=== PATIENT | female | born 1950 | race Caucasian/White ===

== ENCOUNTER 2021-12-14 09:31 | Outpatient (CLI) | payer MEDICARE, SELFPAY ==
--- NOTE | 2021-12-14 11:30 | NEURO_ITS ---
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 # Normal needle/EMG exam. # Clinical correlation recommended. Nerve Conduction Studies Anti Sensory Summary Table Stim Site NR Peak (ms) P-T Amp (?V) Site1 Site2 Delta-P (ms) Dist (cm) Ramos (m/s) Left Sup Fibular Anti Sensory (Ant Lat Mall) 14 cm 4.5 4.1 14 cm Ant Lat Mall 4.5 16.0 36 Right Sup Fibular Anti Sensory (Ant Lat Mall) 14 cm 4.2 13.0 14 cm Ant Lat Mall 4.2 16.0 38 Left Sural Anti Sensory (Lat Mall) Calf 4.3 7.8 Calf Lat Mall 4.3 16.0 37 Right Sural Anti Sensory (Lat Mall) Calf 4.1 16.0 Calf Lat Mall 4.1 16.0 39 Motor Summary Table Stim Site NR Onset (ms) O-P Amp (mV) Site1 Site2 Delta-0 (ms) Dist (cm) Ramos (m/s) Left Peroneal Motor (Vastus Med) Ankle 4.2 0.4 Popit Ankle 11.6 45.0 39 Popit 15.8 0.3 B Fib Ankle 8.9 35.0 39 B Fib 13.1 0.3 Right Peroneal Motor (Vastus Med) Ankle 4.2 0.4 Popit Ankle 16.5 43.0 26 Popit 20.7 0.2 B Fib Ankle 8.7 33.0 38 B Fib 12.9 0.6 Left Tibial Motor (Abd Ferrara Brev) Ankle 4.5 1.2 Knee Ankle 11.9 37.0 31 Knee 16.4 0.1 Right Tibial Motor (Abd Ferrara Brev) Ankle 4.2 0.3 Knee Ankle 10.6 37.0 35 Knee 14.8 0.1 F Wave Studies NR F-Lat (ms) L-R F-Lat (ms) Left Peroneal (Mrkrs) (EDB) 59.30 0.70 Right Peroneal (Mrkrs) (EDB) 58.60 0.70 Left Tibial (Mrkrs) (Abd Hallucis) 59.42 0.00 Right Tibial (Mrkrs) (Abd Hallucis) 59.42 0.00 EMG Side Muscle Nerve Root Ins Act Fibs Amp Dur Recrt Comment Right AntTibialis Dp Br Fibular L4-5 Nml Nml Nml Nml Nml Right Gastroc Tibial S1-2 Nml Nml Nml Nml Nml Right Fibularis Long Sup Br Fibular L5-S1 Nml Nml Nml Nml Nml Right Flex Dig Long Tibial L5-S2 Nml Nml Nml Nml Nml Right Ext Dig Brev Dp Br Fibular L5, S1 Nml Nml Nml Nml Nml Left AntTibialis Dp Br Fibular L4-5 Nml Nml Nml Nml Nml Left Gastroc Tibial S1-2 Nml Nml Nml Nml Nml Left Fibularis Long Sup Br Fibular L5-S1 Nml Nml Nml Nml Nml Left Flex Dig Long Tibial L5-S2 Nml Nml Nml Nml Nml Left Ext Dig Brev Dp Br Fibular L5, S1 Nml Nml Nml Nml Nml MTDD
== END 2021-12-14 09:32 | disposition home or self-care (01) ==
PROVIDERS: Visit Provider Student in an Organized Health Care Education/Training Program
DX: R20.0 Anesthesia of skin (principal); G57.83 Other specified mononeuropathies of bilateral lower limbs; R20.2 Paresthesia of skin
CPT/HCPCS: 95886; 95910

== ENCOUNTER 2021-12-30 11:58 | Emergency (ER) | payer MEDICARE, SELFPAY ==
[2021-12-30 12:19] VITALS: BP 131/77; PULSE 104; RESP 16; TEMP 36.7; O2SAT 100
--- NOTE | 2021-12-30 12:52 | ED.URI ---
HPI - URI/Sore Throat General Chief Complaint: Upper Respiratory Infection Stated Complaint: uri Time Seen by Provider: 12/30/21 12:52 Source: patient and RN notes reviewed Mode of arrival: ambulatory Limitations: no limitations History of Present Illness HPI Narrative: 71-year-old female presents to the [facility] with complaints of headache, chills, fever, body aches after she was caught in the rain on Monday. Symptoms started Monday night. States that she is feeling much better today. Took home COVID test yesterday which she reports is negative. Had COVID at the beginning of the month Related Data Home Medications Medication Instructions Recorded Confirmed simvastatin 20 mg tablet (Zocor) 20 mg PO DAILY 11/11/20 11/11/20 cholecalciferol (vitamin D3) 1,250 1,250 mcg PO WEEKLY 11/05/21 mcg (50,000 unit) capsule cyclobenzaprine 5 mg tablet mg 12/30/21 dulaglutide 0.75 mg/0.5 mL mg subcut 12/30/21 subcutaneous [facility] epinephrine 0.3 mg/0.3 mL 12/30/21 injection, auto-injector pantoprazole 20 mg tablet,delayed mg PO 12/30/21 release Allergies Allergy/AdvReac Type Severity Reaction Status Date / Time bee venom protein (honey bee) Allergy Severe Swelling Verified 12/30/21 12:15 Review of Systems Review of Systems: All systems reviewed & are unremarkable except as noted in HPI and below Constitutional: Constitutional: Reports as per HPI, Reports chills, Reports fatigue and Reports fever(s) Eyes: Eyes: Reports no additional eye complaints ENT: Reports system reviewed and no additional complaints, except as documented Cardiovascular: Cardiovascular: Reports no additional cardiovascular complaints Respiratory: Respiratory: Reports no additional respiratory complaints Gastrointestinal: Gastrointestinal: Reports no additional gastrointestinal complaints Musculoskeletal: Musculoskeletal: Reports no additional musculoskeletal complaints Integumentary/Breasts: Skin/Breast: Reports system reviewed and no additional complaints, except as docu Neurologic: Reports system reviewed and no additional complaints, except as documented Psychiatric: Psychiatric: Reports no additional psychiatric complaints Allergic/Immunologic: Allergic/Immunologic: Reports no additional allergic/immunologic complaints PMFSH Past Medical History Medical History Anemia Colon cancer screening Fatigue GERD (gastroesophageal reflux disease) Spinal stenosis Social History Social History Smoking status: Never smoker Alcohol intake: current Comments At the time of my signature, I reviewed and agree with the nursing past medical, surgical, social, and family history. There is no relevant family history pertinent to the patient complaint. Exam Const: General: healthy appearing, no acute distress, alert and well nourished Nutritional Appearance: well nourished Orientation/consciousness: patient oriented x3 Limitations: no limitations HENMT: Head: normal to inspection Ears: external ears normal, TM's normal bilaterally and EAC's normal Face/Nose/Sinus: Normal external nose present and Normal nares present Face and sinus: normal facial exam and sinuses nontender Throat: posterior oropharynx normal and uvula midline Eyes: General: appearance normal, both eyes and all related structures Conjunctivae: conjunctivae normal Pupils: Equal, round and reactive pupils present Neck: Neck: normal visual inspection, no lymphadenopathy and no meningeal signs Chest: Chest palpation & inspection: normal inspection of the chest Resp: Effort & Inspection: normal respiratory effort and no use of accessory muscles Auscultation: clear to auscultation bilaterally, no crackles, no rales, no rhonchi and no wheezes Cardio: Rate: regular rate Rhythm: regular rhythm Skin: General skin exam: normal color R
== END 2021-12-30 13:07 | disposition home or self-care (01) ==
PROVIDERS: Emergency Provider Nurse Practitioner
DX: J06.9 Acute upper respiratory infection, unspecified (principal); K21.9 Gastro-esophageal reflux disease without esophagitis; M48.00 Spinal stenosis, site unspecified
CPT/HCPCS: 87804; 99213; G0463

== ENCOUNTER 2022-04-19 12:31 | Outpatient (CLI) | payer MEDICARE, SELFPAY ==
--- NOTE | ~2022-04-19 | US_ITS ---
EXAMINATION: US pelvic complete w TV DATE: 04/19/2022 13:21 INDICATION: Pelvic pain Comparison:No prior studies for comparison. TECHNIQUE: Multiple transabdominal and endovaginal sonographic images of the pelvis performed. FINDINGS: The uterus measures 5.3 x 4 x 2.5 cm. The endometrial complex is not well defined for measu rement.. The ovaries are not visualized. There is trace free fluid in the pelvis. There are no abnormal masses seen on either side. IMPRESSION: 1. Unremarkable pelvic ultrasound. Endometrium is not well delineated for measurement. Reviewed, dictated and finalized at location A. NEL ROUGHER IMPRESSION: 1. Unremarkable pelvic ultrasound. Endometrium is not well delineated for measu rement.
== END 2022-04-19 12:32 | disposition home or self-care (01) ==
PROVIDERS: Visit Provider Nurse Practitioner
DX: R10.2 Pelvic and perineal pain (principal)
CPT/HCPCS: 76830; 76856

== ENCOUNTER 2022-05-20 13:52 | Outpatient (CLI) | payer MEDICARE, SELFPAY ==
--- NOTE | ~2022-05-20 | DEXA_ITS ---
Bone Density Report Name: TORI AGUAYO Age: 71 Sex: Female Ethnicity: White Date of : 1950 Indication: postmenopausal; screening for osteoporosis; height loss; Referring Provider: [place], BLAKE Study: Bone densitometry was performed. Exam Date: May 20, 2022 Accession number: [id number] Bone Density: Region BMD T-score Z-score Classification AP Spine(L1-L4) 0.897 -1.4 0.9 Osteopenia Femoral Neck (Right) 0.761 -0.8 1.1 Normal Total Hip (Right) 0.900 -0.3 1.3 Normal World Health Organization criteria for BMD impression classify patients as: Normal (T-score at or above -1.0), Osteopenia (T-score between -1.0 and -2.5), or Osteoporosis (T-score at or below -2.5). 10-year Fracture Risk(1): Major Osteoporotic Fracture 8.6% Hip Fracture 1.0% Reported Risk Factors: [place] (), Neck BMD=0.761, BMI=23.6 (1) FRAX(R) Version 3.08. Fracture probability calculated for an untreated patient. Fracture probability may be lower if the patient has received treatment. Previous Exams: Region Exam Age BMD T-score BMD Change BMD Change Date g/cm2 vs Baseline vs Previous AP Spine (L1-L4) 05/20/2022 71 0.897 -1.4 -0.047 (-4.9%) -0.043 (-4.5%) 12/28/2018 68 0.940 -1.0 -0.004 (-0.4%) -0.012 (-1.2%) 01/18/2016 65 0.952 -0.9 0.008 (0.8%)# 0.008 (0.8%)# 09/24/2012 61 0.944 -0.9 Total Hip(Right) 05/20/2022 71 0.900 -0.3 -0.058 (-6.0%) -0.027 (-2.9%) 12/28/2018 68 0.927 -0.1 -0.031 (-3.2%) -0.008 (-0.8%) 01/18/2016 65 0.935 -0.1 -0.023 (-2.4%) -0.023 (-2.4%) 09/24/2012 61 0.958 0.1 *Denotes significance at 95% confidence level, LSC for AP Spine = 0.022 g/cm2, LSC for Total Hip = 0.027 g/cm2 # Denotes dissimilar scan types or analysis methods Clinical Information Provided by Patient: Has used the following medications: Vitamin D Patient maximum height was 66.5 Menopause Age: 37 Drinks caffeinated beverages Onset of menses at age 13 Number of children 0 Impression: The patient has low bone mass, based on the Total Spine T-score. The patient has an estimated ten-year risk of hip fracture of 1% and an estimated ten-year risk of major fracture of 8.6%, based on the WHO FRAX algorithm. The BMD for the AP Spine (L1-L4) decreased, changing by -4.5% since the last DXA exam. Discussion: BONE DENSITY IS LOW AT ONE OR MORE SKELETAL SITES. This patient's lowest T-score is low at one or more skeletal sites. It meets the World Health Organization's (WHO) criteria f
== END 2022-05-20 13:53 | disposition home or self-care (01) ==
PROVIDERS: Visit Provider Nurse Practitioner
DX: Z78.0 Asymptomatic menopausal state (principal); M85.88 Other specified disorders of bone density and structure, other site
CPT/HCPCS: 77080

== ENCOUNTER 2023-01-12 13:50 | Outpatient (CLI) | payer MEDICARE, SELFPAY ==
[2023-01-12 14:11] LABS: Basophils Percent Auto 0.3 % (0.2-1.2); Eosinophils Absolute Auto 0.3 K/mm3 (0-0.3); Eosinophils Percent Auto 2.9 % (0-4.4); Hematocrit 40.1 % (37.0-47.0); Hemoglobin 12.7 g/dL (12.0-15.0); Immature Granulocyte Absolute 0.05 K/mm3 (0.00-0.031); Immature Granulocyte Percent A 0.6 % (0-0.5); Lymphocytes Absolute Auto 2.37 K/mm3 (0.9-3.2); Lymphocytes Percent Auto 26.8 % (18.3-44.2); Mean Corpuscular HGB Conc 31.7 g/dl (32-36); Mean Corpuscular Hemoglobin 27.1 pg (26-34); Mean Corpuscular Volume 85.7 fl (80-100); Mean Platelet Volume 10.1 fl (7.4-10.4); Monocytes Absolute Auto 0.6 K/mm3 (0.1-0.6); Monocytes Percent Auto 6.7 % (2.6-8.5); Neutrophils Absolute Auto 5.5 K/mm3 (1.3-6.7); Neutrophils Percent Auto 62.7 % (45.5-73.1); Platelet Count Result 329 k/mm3 (150-375); Red Blood Count 4.68 M/mm3 (4.2-5.4); Red Cell Distribution Width 15.9 % (11.5-14.5); White Blood Count 8.8 K/mm3 (4.5-10.0)
[2023-01-12 16:35] LABS: Alanine Aminotransferase 21 U/L (6-35); Albumin Level 4.5 g/dL (3.5-5.1); Alkaline Phosphatase 76 U/L (38-126); Anion Gap 11 mmol/L (8-16); Aspartate Amino Transferase 21 U/L (14-36); Bilirubin,Total 0.6 mg/dL (0.2-1.3); Blood Urea Nitrogen 24 mg/dL (7-17); Carbon Dioxide 28 mmol/L (22-30); Chloride 101 mmol/L (98-107); Estimated Glomerular Filt Rate > 60; Glucose 90 mg/dL (65-110); Potassium 3.9 mmol/L (3.4-5.0); Sodium 140 mmol/L (137-145)
[2023-01-12 16:47] LABS: Immunoglobulin A 66 mg/dL (70-400); Immunoglobulin G 616 mg/dL (700-1600); Immunoglobulin M 54 mg/dL (40-230)
[2023-01-15 14:57] LABS: Kappa\\Lambda Light Chains 2.12 (0.26-1.65); Lambda Light Chain 9.2 mg/L (5.7-26.3)
[2023-01-15 16:09] LABS: Albumin 4.2 g/dL (3.8-4.8); Alpha 1 Globulin 0.4 g/dL (0.2-0.3); Alpha 2 Globulin 0.9 g/dL (0.5-0.9); Beta 1 Globulin 0.5 g/dL (0.4-0.6); Gamma Globulin 0.6 g/dL (0.8-1.7); Protein, Total 6.8 g/dL (6.1-8.1)
== END 2023-01-12 13:51 | disposition home or self-care (01) ==
PROVIDERS: Visit Provider Internal Medicine Hematology & Oncology
DX: D80.9 Immunodeficiency with predominantly antibody defects, unspecified (principal)
CPT/HCPCS: 36415; 80053; 82784; 83883; 84155; 84165; 85025

== ENCOUNTER 2023-10-24 07:04 | Outpatient (CLI) | payer MEDICARE, SELFPAY ==
--- NOTE | ~2023-10-24 | CT_ITS ---
CT brain w con Ordering provider: Yaniv Mojica MD History: . G43.909 - Migraine, unspecified, not intractable, without... . Comparison: None. Technique: CT of the head with and without contrast. Radiation reduction technique utilized. The dose-length product was 605.33 mGy-cm. 100 mL Omnipaque 350 was given IV. FINDINGS: BRAIN PARENCHYMA AND CSF SPACES: No midline shift, mass effect or hemorrhage. Postcontrast images de monstrate no abnormal enhancement. The brain parenchyma and CSF spaces are otherwise normal. VISUALIZED PARANASAL SINUSES: Normal. MASTOIDS: Normal. BONES: The bones appear intact. SOFT TISSUES: Visualized nasopharynx is unremarkable. Superficial soft tissues are normal. IMPRESSION: No acute intracranial findings. No enhancing lesions. Reviewed, dictated and finalized at location A.
[2023-10-24 07:27] LABS: Estimated Glomerular Filt Rate 54
== END 2023-10-24 07:05 | disposition home or self-care (01) ==
PROVIDERS: Visit Provider Psychiatry & Neurology Neurology
DX: G43.909 Migraine, unspecified, not intractable, without status migrainosus (principal)
CPT/HCPCS: 70460; Q9967

== ENCOUNTER 2024-01-29 10:57 | Outpatient (CLI) | payer MEDICARE, SELFPAY ==
[2024-01-29 11:17] LABS: Basophils Percent Auto 0.6 % (0.2-1.2); Eosinophils Absolute Auto 0.3 K/mm3 (0-0.3); Eosinophils Percent Auto 3.8 % (0-4.4); Hematocrit 39.8 % (37.0-47.0); Hemoglobin 12.8 g/dL (12.0-15.0); Immature Granulocyte Absolute 0.01 K/mm3 (0.00-0.031); Immature Granulocyte Percent A 0.2 % (0-0.5); Lymphocytes Absolute Auto 1.46 K/mm3 (0.9-3.2); Lymphocytes Percent Auto 22.4 % (18.3-44.2); Mean Corpuscular HGB Conc 32.2 g/dl (32-36); Mean Corpuscular Hemoglobin 29.1 pg (26-34); Mean Corpuscular Volume 90.5 fl (80-100); Monocytes Absolute Auto 0.4 K/mm3 (0.1-0.6); Monocytes Percent Auto 5.8 % (2.6-8.5); Neutrophils Absolute Auto 4.4 K/mm3 (1.3-6.7); Neutrophils Percent Auto 67.2 % (45.5-73.1); Platelet Count Result 266 k/mm3 (150-375); Red Cell Distribution Width 13.4 % (11.5-14.5); White Blood Count 6.5 K/mm3 (4.5-10.0)
[2024-01-29 12:19] LABS: Alanine Aminotransferase 13 U/L (6-35); Albumin Level 4.5 g/dL (3.5-5.1); Alkaline Phosphatase 76 U/L (38-126); Anion Gap 6 mmol/L (4-12); Aspartate Amino Transferase 23 U/L (14-36); Bilirubin,Total 0.6 mg/dL (0.2-1.3); Blood Urea Nitrogen 21 mg/dL (7-17); Calcium 9.1 mg/dL (8.4-10.2); Carbon Dioxide 30 mmol/L (22-30); Chloride 104 mmol/L (98-107); Estimated Glomerular Filt Rate > 60; Glucose 75 mg/dL (65-110); Potassium 4.3 mmol/L (3.4-5.0); Sodium 140 mmol/L (137-145)
[2024-01-29 12:28] LABS: Immunoglobulin A 66 mg/dL (70-400); Immunoglobulin G 556 mg/dL (700-1600); Immunoglobulin M 51 mg/dL (40-230)
[2024-01-31 03:33] LABS: Protein, Total 6.4 g/dL (6.1-8.1)
[2024-02-02 13:43] LABS: Kappa\\Lambda Light Chains 1.51 (0.26-1.65); Lambda Light Chain 11.4 mg/L (5.7-26.3)
== END 2024-01-29 10:58 | disposition home or self-care (01) ==
PROVIDERS: Visit Provider Internal Medicine Hematology & Oncology
DX: D80.9 Immunodeficiency with predominantly antibody defects, unspecified (principal)
CPT/HCPCS: 36415; 80053; 82784; 83883; 84155; 84165; 85025

== ENCOUNTER 2024-07-31 10:50 | Outpatient (CLI) | payer MEDICARE, SELFPAY ==
--- OUTSIDE RECORDS SUMMARY | 2024-07-31 10:58 | XMS_ITS | Encounter Summary ---
Author Organization [facility] Address [address] [place] [address] Care Team Providers Care Grocery Carrier Name Role Phone Unavailable Primary Care Provider Unavailabl e Encounter Details Date Type Department Care Team (Late st Contact Info) Description 05/13/2024 Lab Requisition [facility] - DermPath Lab [address] [place] [address] Ashly Sage MD [address] [facility] [address] DEPT [place] [address] Social History Tobacco Use Types Packs/Day Years Used Date Smoking Tobacco: Never Assessed Comments Unknown Sex and Gender Information Value Date Recorded Sex Assigned at Not on file Legal Sex Female 10:26 AM CDT Gender Identity Not on file Sexual Orientation Not on file documented as of this encounter Plan of Treatment Not on file documented as of this encounter Procedures Procedure Name Priority Date/Time Associated Diagnosis Comments DERMATOPATHOLOGY Routine 05/13/2024 11:1 6 AM CDT documented in this encounter Results * DERMATOPATHOLOGY (05/13/2024 11:16 AM CDT) Case Report Dermatopathology Report Case: [id number] Authorizing Provider: Ashly Sage MD Collected: 05/13/2024 11:16 AM Ordering Location: [facility] - Received: 05/15/2024 09:01 AM DermPath Lab Pathologist: Mansi Love MD Specimen: Skin, right medial inf buttock 1:25 PM CDT DERMATOPATHOLOGY LABORATORY Final Diagnosis Specimen A. 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 The specimen consists of a shave biopsy measuring 12x9x3 mm. Jar 0. 1:25 PM CDT DERMATOPATHOLOGY LABORATORY Microscopic Description Specimen A. SKIN, right medial inf buttock: There is parakeratosis overlying disorderly maturation of keratinocytes with nuclear pleomorphism throughout the full thickness of the epidermis. In addition, there is hypergranulosis with vacuolated granular layer cells. P16 reveals block-like positivity in lesional cells. P53 is overexpressed in lesional cells. COMMENT: In this location, this may represent bowenoid papulosis. The p16 block-like positivity suggests an association with high-risk human papillomavirus. Clinical correlation is recommended. 1:25 PM CDT DERMATOPATHOLOGY LABORATORY Disclaimer An external and internal positive and negative controls are appropriate for the histochemical, immunohistochemical and immunofluorescence stain(s) in this case (if any), except where stated explicitly. The performance characteristics of the stain(s) cited in this report were developed and its performance characteristic determined by the Dermatopathology Laboratory at [facility], directed by Dr. Carmella Lauren. These tests need not be, and therefore are not, approved by the [place] Food and Drug Administration. The tests are used for clinical purposes. Billing Codes Specimen Charges Stain Charges 79435 1 [id number] 40564 1 1 5 1:25 PM CDT DERMATOPATHOLOGY LABORATORY Embedded Images 1:25 PM CDT DERMATOPATHOLOGY LABORATORY Pathology/Cytolo gy TISSUE SPECIMEN FROM SKIN / Unknown 05/13/2024 11:16 AM CDT 05/15/2024 9:01 AM CDT us Ashly Sage MD LAB - PATHOLOGY/CYTOLOGY OR DERABLES Final Result DERMATOPATHOLOGY LABORATORY [facility] - Department of Dermatology [address], [address] [phone] documented in this encounter Visit Diagnoses Not on filedocumented in this encounter
--- OUTSIDE RECORDS SUMMARY | 2024-07-31 10:58 | XMS_ITS | CONTINUITY OF CARE DOCUMENT ---
Author Name [email or web address] Address Unknown Organization [facility] Address [address] [place] [address] Phone [phone] Care Team Providers Care Door Tender Name Role Phone Jeremi HAMMER, Tulio aSntos Unavailable [phone] KRAIG SMART DO Unavailable [phone] KRAIG SMART DO Unavailable [phone] [employer] Payer name Policy type / Coverage type Kenvir red green party ID [facility] MEDICARE ADVANTAGE (PPO) Other [id number]
--- OUTSIDE RECORDS SUMMARY | 2024-07-31 10:58 | XMS_ITS | Clinical Summary ---
Author Organization [facility] Address [address] [place] [address] Care Team Providers Care Warranty Administrator Name Role Phone Unavailable Primary Care Provider Unavailabl e Source Comments [facility],non-owned Affiliates and Associated Physician Practices is amultiple site organization consisting of ambulatory clinics and hospital sitesin [place], [place], [place] and [place]. This disclosure is being madepursuant to the Care Everywhere program and may not contain all information available regarding this patient. Last updated 17.[facility] Encounters Date Type Department Care Team Description 05/13/2024 Lab Requisition [facility] - DermPath Lab [address] [place] [id number] Ashly Sage MD from Last 3 Months Social History Tobacco Use Types Packs/Day Years Used Date Smoking Tobacco: Never Assessed Comments Unknown Sex and Gender Information Value Date Recorded Sex Assigned at Not on file Legal Sex Female 10:26 AM CDT Gender Identity Not on file Sexual Orientation Not on file Plan of Treatment Health Maintenance Due Date Last Done Comments BONE DENSITY TESTING 1950 COLOGUARD (AGES 45-75) - COL ON CA SCREENING 1950 COLON MONITORING 1950 COLONOSCOPY - COLON CA SCREENING 1950 CT COLONOGRAPHY - COLON CA SCREENING 1950 Colorectal Cancer Screening 1950 FIT - COLON CA SCREENING 1950 FLEX SIG - COLON CA SCREENING 1950 LIPID TESTING 1950 MAMMOGRAM 1950 HEPATITIS C SCREENING 11/09/1967 DTAP/TDAP/TD VACCINES (1 - Tdap) 1968 PNEUMOCOCCAL VACCINE 50+ (1 of 1 - PCV) 11/14/1999 ZOSTER VACCINE (1 of 2) 11/14/1999 COVID-19 VACCINE (1 - 2023-2 5 season) 2023 DEPRESSION SCREENING 03/06/2024 MEDICARE AWV CALENDAR YEAR 2024 INFLUENZA VACCINE (Season Ended) 2024 Respiratory Syncytial Virus (RSV) Vaccine Pt: or over 60 yrs (1 - 1-dose 75+ series) 2024 HEPATITIS B VACCINE Aged Out No longe r eligible based on patient's age to complete this topic HIB VACCINE Aged Out No longer eligi ble based on patient's age to complete this topic HPV VACCINE Aged Out No longer eligi ble based on patient's age to complete this topic MENINGOCOCCAL (Group B) VACC INE SHARED DECISION-MAKING Aged Out No longer eligibl e based on patient's age to complete this topic MENINGOCOCCAL GROUPS A/C/Y/W VACCINE Aged Out No longer eligible b ased on patient's age to complete this topic Procedures Procedure Name Priority Date/Time Associated Diagnosis Comments DERMATOPATHOLOGY Routine 05/13/2024 11:1 6 AM CDT from Last 3 Months Results * DERMATOPATHOLOGY (05/13/2024 11:16 AM CDT) Case Report Dermatopathology Report Case: [id number] Authorizing Provider: Ashly Sage MD Collected: 05/13/2024 11:16 AM Ordering Location: [facility] - Received: 05/15/2024 09:01 AM DermPath Lab [...] high-risk human papillomavirus. Clinical correlation is recommended. 5 1:25 PM CDT DERMATOPATHOLOGY LABORATORY Disclaimer An external and internal positive and negative controls are appropriate for the histochemical, immunohistochemical and immunofluorescence stain(s) in this case (if any), except where stated explicitly. The performance characteristics of the stain(s) cited in this report were developed and its performance characteristic determined by the Dermatopathology Laboratory at [facility], directed by Dr. Carmella Lauren. These tests need not be, and therefore are not, approved by the [place] Food and Drug Administration. The tests are used for clinical purposes. Billing Codes Specimen Charges Stain Charges 51955 1 [id number] 1 1 5 1:25 PM CDT DERMATOPATHOLOGY LABORATORY Embedded Images 5 1:25 PM CDT DERMATOPATHOLOGY LABORATORY Pathology/Cytolo gy TISSUE SPECIMEN FROM SKIN / Unknown 05/13/2024 11:16 AM CDT 05/15/2024 9:01 AM CDT Ashly Sage MD LAB - PATHOLOGY/CYTOLOGY OR DERABLES Final Result DERMATOPATHOLOGY LABORATORY [facility] - Department of Dermatology [facility] [address] [place] [address], [address] [place] [address], [facility] [phone] from Last 3 Months Insurance MEDICARE [employer] UHC MANAGED MEDICARE ADV
--- OUTSIDE RECORDS SUMMARY | 2024-07-31 10:58 | XMS_ITS | Clinical Summary ---
Author Organization [facility] Address [address] [place] [address] Phone Care Team Providers Care Generator Rebuilder Name Role Phone Rob Ferreira Primary Care Provider Allergies No known active allergies Medications valACYclovir (VALTREX) 500 mg tabletIndications: Primary HSV infection of mouth Take 500 mg by mouth every 12 hours as needed. 03/29/19 16 Active ergocalciferol (VITAMIN D2) 50,000 unit capsule TK 1 C PO Q MONTH WITH A MEAL 11/04/19 20 Active EPINEPHrine (EPIPEN) 0.3 mg/0.3 mL Auto-InjectorIndic ations:Bee sting allergy Inject 0.3 mL (0.3 mg) by intramuscular injection 1 time daily as needed for Anaphylaxis. 1 Each 02/17/20 21 Active fluticasone propionate (FLONASE) 50 mcg/spray [place], Suspension nasal inhalerIndications :Seasonal allergic rhinitis due to pollen Administer 2 Sprays in each nostril daily. 16 Gram 02/17/20 21 Active latanoprost (XALATAN) 0.005 % solution INSTILL 1 DROP INTO EACH EYE AT BEDTIME 09/01/19 23 Active dulaglutide (TRULICITY) 4.5 mg/0.5 mL injectionIndicatio ns:Metabolic syndrome,BMI 28.0-28.9,adult,Pr ediabetes Inject 0.5 mL (4.5 mg) by subcutaneous injection every 7 days. Dx codes: E88.81, Z68.28, and R73.03 6 mL 3 09/18/19 24 Active brimonidine (ALPHAGAN) 0.2 % solution instill 1 drop into each eye twice daily 10/10/19 24 Active traZODone (DESYREL) 50 mg tabletIndications: Primary insomnia Take 1 Tablet (50 mg) by mouth daily at bedtime. 90 Tablet 1 11/23/19 24 Active lansoprazole (PREVACID) 30 mg Capsule, Delayed Release(E.C.) TAKE 1 CAPSULE BY MOUTH ONCE DAILY 30 MINUTES BEFORE DINNER 100 Capsule 3 05/02/19 25 Active simvastatin (ZOCOR) 20 mg tabletIndications: Mixed hyperlipidemia TAKE 1 TABLET BY MOUTH ONCE DAILY LATE IN THE DAY 100 Tablet 3 06/18/19 25 Active Active Problems Patient Care Coordination No te Formatting of this note migh t be different from the original. Primary Care: Rob Ferreira [place]: [place] [address] [facility] [address] [place] [address] Other: Odalys Cruz CERAMIC ARTIST Problem Noted Date Diagnosed Date Bee sting allergy 02/16/2021 History of left hip replacement 02/16/2021 Degenerative tear of left medial meniscus 2020 Spinal stenosis of lumbar region 02/14/2019 Prediabetes 08/18/2016 Major depressive disorder wi th single episode, in full remission 08/18/2016 Need for vaccination with 13 -polyvalent pneumococcal conjugate vaccine 12/23/2015 Dermatitis 06/23/2015 Screening mammogram for high-risk patient 2015 Hyperlipidemia 04/02/2015 Metabolic syndrome 04/02/2015 Hiatal hernia Acid reflux Resolved Problems Problem Noted Date Diagnosed Date Resolved Date BMI 26.0-26.9,adult 11/18/2021 11/19/19 23 Prehypertension 12/23/2015 11/18/2022 BMI 28.0-28.9,adult 06/23/2015 11/19/19 23 Situational mixed anxiety an d depressive disorder 04/02/2015 10/17/2019 Migraine without aura and wi thout status migrainosus, not intractable 04/02/2015 11/18/2022 GERD (gastroesophageal reflux disease) 04/02/2015 02/14/2019 Irritable bowel syndrome without diarrhea 04/02/2015 11/18/2022 04/02/201511/18/2022 Breast pain 10/27/2011 12/27/2012 Osteopenia 04/02/2015 Encounters Date Type Department Care Team Description 07/25/2024 External Device Data ST[facility] ABSTRACTION Provider, Abstract 07/24/2024 External Device Data [facility] ABSTRACTION Provider, Abstract 07/23/2024 External Device Data [facility] ABSTRACTION Provider, Abstract 07/12/2024 Orders Only [facility] [address] [place] [address] Provider, Abstract 07/05/2024 Abstract [facility] Oncology and Hematology - [address] [place] [phone] Danielito Church MD 06/16/2024 Refill [facility] Internal Medicine - [address] [place] [address] Rob Ferreira, Mixed hyperlipidemia 06/03/2024 Abstract [facility] Internal Medicine - [place] [address] [place] [address] Rob Ferreira DO 05/30/2024 Medication Prior Auth Encounter [facility] Prescription Management Dept [address] [place] [address] [place] [phone] Kim Walsh, PHARMACIST 05/30/2024 Refill [facility] Internal Medicine [facility] [address] [place] [address] Rob Ferreira DO 05/22/2024 External Device Data [facility] ABSTRACTION Provider, Abstract 05/11/2024 External Device Data [facility] ABSTRACTION Provider, Abstract 05/10/2024 External Device Data [facility] ABSTRACTION Provider, Abstract 05/08/2024 External Device Data [facility] ABSTRACTION Provider, Abstract from Last 3 Months Immunizations Immunization Administration Dates Next Due (DIPHTHERIA AND TETANUS TOXO IDS ADSORBED)(6 WKS-6 YRS) DIPTHERHIS AND TETANUS TOXOIDS VACCINE, 0.5 ML IM 11/19/2014 (INFANRIX)(6 WKS-6 YRS) DIPT HERIA, TETANUS TOXOIDS, AND ACCELLULAR PERTUSSIS VACCINE (DTAP), 0.5 ML IM 11/11/2014 (PNEUMOVAX 23)(50 YRS UP) PN EUMOCOCCAL POLYSACCHARIDE (PPV23) 0.5 ML, IM 04/26/2017 (PREVNAR 13)(6 WKS UP) PNEUM OCOCCAL CONJUGATE (PCV13) 0.5 ML, IM 12/23/2015,11/19/2014 (SHINGRIX)(50 YRS UP) ZOSTER VACCINE RECOMBINANT, 0.5 ML, IM 08/23/2019,02/21/2019 (SPIKEVAX) (12 YRS UP PRIMAR Y SERIES) COVID-19 VACCINE - MRNA-1273(PF) 100 MCG/0.5 ML IM SUSP 08/10/2021,01/20/2021,05/25/2020,04/23 Hepatitis A Vaccine 10/07/2008,04/04/2008 Hepatitis B Vaccine 10/07/2008,05/05/2008,2008 INFLUENZA VACCINE QUADRIVALE NT 3 YR UP PF IM 12/12/2017 INFLUENZA VACCINE QUADRIVALE NT ADJ 65 YR UP PF IM 12/05/2019 Influenza Seasonal Unspecifi ed Formulation IM 12/05/2019,12/07/2016,11/11/2014 Influenza Vaccine High Dose 65+ Yrs IM 0 11/15/2018,12/23/2015,12/10/2013,12/11,12/14/2011,12/01/2010 PNEUMOVAX (PPSV23) pneumococ digna polysaccharide 23-valent Vaccine 11/11/2014 Pneumococcal conjugate, unsp ecified formulation 11/11/2014 Zoster Vaccine Live SQ 12/18/2014 Family History Medical History Relation Name Comments Cancer Maternal Aunt 1 stomach Lung Cancer Maternal Aunt 2 Cancer Maternal Grandmother Hailey Mayberry unsur e Cancer - Other Maternal Grandmother Hailey Mayberry Walter ated with radium for some kind of issues with female organs Cancer - Other Mother Mae Padilla Skin cancer Depression Mother Mae Padilla Other Mother Mae Padilla Cancer Paternal Aunt unsure Other Paternal Uncle diabetes Hypertension Sister Relation Name Status Comments Father Maternal Aunt 1 Maternal Aunt 2 Maternal Grandmother Hailey Mayberry Mother Mae Padilla Alive Paternal Aunt Paternal Uncle Sister Alive Social History Tobacco Use Types Packs/Day Years Used Date Smoking Tobacco: Never Passive Smoke Exposure: Never Smokeless Tobacco: Never Tobacco Cessation:Counseling Given: Not Answered Alcohol Use Standard Drinks/Week Comments Yes 0 (1 standard drink = 0.6 oz pur e alcohol) moderate Feeling Safe Answer Date Recorded Fear of Current or Ex-Partner Not on file Emotionally Abused Not on file 12/01/2023 Within the last year, have y ou been kicked, hit, slapped, or otherwise physically hurt by your partner or ex-partner? No 12/01/2023 Sexually Abused Not on file 12/01/2023 Financial Resource Strain Answer Date R ecorded How hard is it for you to pa y for the very basics like food, housing, medical care, and heating? Not hard at all 11/18/2021 Food Insecurity Answer Date Recorded In the past 12 months, have you worried that your food would run out before you had money to buy more? Never true 11/18/2021 In the past 12 months, did y ou run out of food and didn't have money to buy more? Never true 11/18/2021 Transportation Needs Answer Date Record ed In the past 12 months, has l ack of transportation kept you from medical appointments or from getting medications? No 11/18/2021 Lack of Transportation (Non-Medical) Not on file 11/18/2021 Comments No Sex and Gender Information Value Date Recorded Sex Assigned at Female 11/24/2023 5:07 AM CDT Legal Sex Female 5:42 AM PLANT OPERATOR/SHIFT SUPERVISOR Gender Identity Female 11/24/2023 5:07 AM CDT Sexual Orientation Not on file Occupation Industry Job Start Date Job End Date Not on file Not on file Not on file Not on file Last Filed Vital Signs Vital Sign Reading Time Taken Comments Blood Pressure 127/79 02/07/2024 11:02 AM PLANT OPERATOR/SHIFT SUPERVISOR Pulse 75 02/07/2024 11:02 AM PLANT OPERATOR/SHIFT SUPERVISOR Temperature 36.3 C (97.3 F) 02/07/2024 11:02 AM PLANT OPERATOR/SHIFT SUPERVISOR Respiratory Rate 16 02/07/2024 11:02 AM PLANT OPERATOR/SHIFT SUPERVISOR Oxygen Saturation 97% 02/07/2024 11:02 AM PLANT OPERATOR/SHIFT SUPERVISOR Inhaled Oxygen Concentration - - Weight 71.7 kg (158 lb) 02/07/2024 11:02 AM PLANT OPERATOR/SHIFT SUPERVISOR Height 167.6 cm (5' 6) 12/01/2023 11:38 AM CDT Body Mass Index 25.5 12/01/2023 11:38 AM CDT Plan of Treatment Upcoming Encounters Date Type Department Care Team (Late st Contact Info) Description 08/07/2024 10:15 AM CDT Office Visit [facility] Oncology and Hematology - [place] [address] [facility] [address] [place] [phone] Danielito Church MD [address] [facility] [address] [place] [address] 11/20/2024 10:40 AM CDT Office Visit [facility] Internal Medicine - [facility] [address] [place] [address] [place] [address] [place] [address] 12/03/2024 11:30 AM CDT Appointment [facility] [address] [address] [place] [phone] Angie Rodriguez, PIGGYBACK CLERK [address] [facility] [address] [place] [phone] 12/03/2024 12:30 PM CDT Office Visit [facility] Breast Surgery [place] [address] [facility] [address] [place] [address] Angie Rodriguez, SHARON [address] [place] [address] Health Maintenance Due Date Last Done Comments FIT/ DNA Q 3 YEARS (AUTO ORDER) 11/14/1967 FIT/FOBT Q 1 YEAR (AUTO ORDER) 11/14/1967 FLEX SIG/CT COLONOGRAPHY Q 5 YEARS (AUTO ORDER) 11/14/1967 FIT-DNA Q 3 years 1994 FIT/FOBT Q 1 year 1994 Flex Sig/CT Colonography Q 5 years 1994 RSV VACCINE (60+ or ) (1 - Risk 60-74 years 1-dose series) 2009 OSTEOPOROSIS SCREENING 08/10/2022 08/10/2017, 2012 INFLUENZA VACCINE (#1) 2023 , 12/05/2019, 12/05/2019, Additional history exists COVID-19 Vaccine (5 - 2023-2 5 season) 2023 08/10/2021, 01/20/2021, 05/25/2020, Additional history exists [place] Ad[place] ([place]) Preventative Visit/Annual Wellness Visit 03/06/2024 11/23/2023, 11/18/2022, 11/18/2021, Additional history exists DTAP/TDAP/TD VACCINES (3 - Tdap) 11/19/2024 11/20/19 15, 11/11/2014 BREAST CANCER SCREENING 11/30/2024 12/01/19 24, 11/29/2022, 11/24/2021, Additional history exists COLORECTAL CANCER SCREENING (AUTO ORDER) 03/15/2028 03/15/2018, 08/29/2013 COLORECTAL SCREENING 03/15/2028 03/15/2018, 08/29/2013, 03/06/2013 Colorectal Cancer Screening (AUTO ORDER) 03/15/2028 Colorectal Cancer Screening 03/15/2028 PNEUMOCOCCAL VACCINE 50+ YEARS Completed 0 04/26/2017, 04/26/2017, 12/23/2015, Additional history exists ZOSTER VACCINE Completed 08/23/2019, 02/03, 12/18/2014 Procedures Procedure Name Priority Date/Time Associated Diagnosis Comments EYE EXAM Routine 07/03/2024 2:39 PM CDT MAMMO 3D ANNETTE SCREEN BILAT W OR WO CAD Routine 12/01/2023 11:30 AM CDT Visit for screening mammogram Encounter for screening breast examination ENDOSCOPY, COLON, SCREENING Routine 03/15/2018 HM DEXA SCAN Routine 08/10/2017 from Last 3 Months or Most Recently Relevant to Health Maintenance Results * EYE EXAM (07/03/2024 2:39 PM CDT) us Abstract Provider OPHTH OTHER Final Result [facility] CLIA# [id number] [place] [address] * MAMMO SCRN BILAT 3D ANNETTE W OR WO CAD (12/01/2023 11:30 AM CDT) Anatomical Region Laterality Modality Breast Bilateral Mammography 12/01/2023 11:3 1 AM CDT Impressions 12/01/2023 11:44 AM CDT IMPRESSION: 1. No concerning findings. OVERALL FINAL ASSESSMENT: BI-RADS CATEGORY 1 - Negative. RECOMMENDATIONS: 1. Recommend annual mammography. DICTATION LOCATION: [facility] Narrative 12/01/2023 11:44 AM CDT BILATERAL SCREENING DIGITAL MAMMOGRAM WITH 3D TOMOSYNTHESIS AND CAD DATE: 12/01/2023 11:30 AM HISTORY: Routine yearly screening exam. TECHNIQUE: Low-dose full-field digital breast tomosynthesis examination was performed of both breasts with 2D and 3D acquisitions. CAD was utilized. COMPARISON: Studies dating back to June 2018 BREAST COMPOSITION: There are scattered areas of fibroglandular density. FINDINGS: No concerning dominant masses, suspicious calcifications, parenchymal asymmetries or areas of architectural distortion are identified in either breast. Procedure Note Tree Alvarado MD - 12/01/2023 BILATERAL SCREENING DIGITAL MAMMOGRAM WITH 3D TOMOSYNTHESIS AND CAD DATE: 12/01/2023 11:30 AM HISTORY: Routine yearly screening exam. TECHNIQUE: Low-dose full-field digital breast tomosynthesis examination was performed of both breasts with 2D and 3D acquisitions. CAD was utilized. COMPARISON: Studies dating back to June 2018 BREAST COMPOSITION: There are scattered areas of fibroglandular density. FINDINGS: No concerning dominant masses, suspicious calcifications, parenchymal asymmetries or areas of architectural distortion are identified in either breast. IMPRESSION: 1. No concerning findings. OVERALL FINAL ASSESSMENT: BI-RADS CATEGORY 1 - Negative. RECOMMENDATIONS: 1. Recommend annual mammography. DICTATION LOCATION: [facility] [place] Angie Rodriguez PIGGYBACK CLERK MAMMO ORDERABLES Final Re sult * ENDOSCOPY, COLON, SCREENING (03/15/2018) us Gamal Ibarra MD GI PROCEDURE ORDERABLES Edited R esult - Final [facility] [place] CLIA# [id number] [place], [place] [id number] * HM DEXA SCAN (08/10/2017) us Abstract Provider HEALTH MAINTENANCE Edited Resu lt - Final [facility] CLIA# [id number] [place], [place] [id number] from Last 3 Months or Most Recently Relevant to Health Maintenance Insurance RX [employer] RX Member Subscriber Plan / Payer (Ef fective 2020-Present) Name:Loretta Trujillo Relation to Subscriber:Self Name:Loretta Trujillo Payer ID:Not on file Group ID:[id number] Type:RX Medicare Part D Address: [address] [facility] [address] Care Teams Generator Rebuilder Relationship Specialty [place] [address] [place] [address] PCP - General Internal Medicine 04/02/15
--- OUTSIDE RECORDS SUMMARY | 2024-07-31 10:58 | XMS_ITS | Encounter Summary ---
Author Organization [facility] Address [address] [place] [address] Care Team Providers Care Therapeutic Specialist Name Role Phone Unavailable Primary Care Provider Unavailabl e Encounter Details Date Type Department Care Team (Late st Contact Info) Description 07/10/2019 Lab Requisition [facility] DermPath Lab [address] [place] [phone] Ashly Sage MD [address] [facility] [address] [place] [address] Social History Tobacco Use Types Packs/Day Years [...] Priority Date/Time Associated Diagnosis Comments DERMATOPATHOLOGY Routine 07/09/2019 12:0 0 AM CDT documented in this encounter Results * DERMATOPATHOLOGY (07/09/2019 12:00 AM CDT) Case Report Dermatopathology Report Case: [id number] Authorizing Provider: Ashly Sage MD Collected: 07/09/2019 12:00 AM Ordering Location: [facility] DermPath Lab Received: 07/10/2019 07:01 AM Pathologist: Chris Lauren MD Specimen: Skin, left lateral ankle 0 2:28 PM CDT DERMATOPATHOLOGY LABORATORY Final Diagnosis Specimen A. SKIN, left lateral ankle: BASAL CELL CARCINOMA, NODULAR TYPE (C44.719) 0 2:28 PM CDT DERMATOPATHOLOGY LABORATORY at 1428 CDT Clinical History R/O BCC, irritated, non-healing. 0 2:28 PM CDT DERMATOPATHOLOGY LABORATORY Gross Description Specimen A: Received is one formalin filled container labeled with the patient's name and designated left lateral ankle. The specimen consists of a shave measuring [id number]. Jar 0. 0 2:28 PM CDT DERMATOPATHOLOGY LABORATORY Microscopic Description Specimen A. SKIN, left lateral ankle: Within the dermis there are aggregates of basaloid cells with a high nuclear to cytoplasmic ratio and peripheral palisading. 0 2:28 PM CDT DERMATOPATHOLOGY LABORATORY Disclaimer An external [...] purposes. Billing Codes Specimen Charges Stain Charges 91957 1 0 2:28 PM CDT DERMATOPATHOLOGY LABORATORY Embedded Images 0 2:28 PM CDT DERMATOPATHOLOGY LABORATORY Pathology/Cytolog y TISSUE SPECIMEN FROM SKIN / Unknown 07/09/2019 07/10/2019 7:01 AM CDT Ashly Sage MD LAB - PATHOLOGY/CYTOLOGY OR DERABLES Final Result DERMATOPATHOLOGY LABORATORY [facility] - Department of Dermatology [address] [place] [address], [address] [place] [address], [facility] [phone] documented in this encounter Visit Diagnoses Not on filedocumented in this encounter
[2024-07-31 11:07] LABS: Basophils Percent Auto 0.5 % (0.2-1.2); Eosinophils Absolute Auto 0.2 K/mm3 (0-0.3); Eosinophils Percent Auto 2.6 % (0-4.4); Hematocrit 40.7 % (37.0-47.0); Hemoglobin 12.8 g/dL (12.0-15.0); Immature Granulocyte Absolute 0.02 K/mm3 (0.00-0.031); Immature Granulocyte Percent A 0.3 % (0-0.5); Lymphocytes Absolute Auto 1.56 K/mm3 (0.9-3.2); Lymphocytes Percent Auto 21.1 % (18.3-44.2); Mean Corpuscular HGB Conc 31.4 g/dl (32-36); Mean Corpuscular Hemoglobin 28.7 pg (26-34); Mean Corpuscular Volume 91.3 fl (80-100); Mean Platelet Volume 9.7 fl (7.4-10.4); Monocytes Absolute Auto 0.6 K/mm3 (0.1-0.6); Monocytes Percent Auto 8.5 % (2.6-8.5); Platelet Count Result 291 k/mm3 (150-375); Red Blood Count 4.46 M/mm3 (4.2-5.4); Red Cell Distribution Width 15.1 % (11.5-14.5); White Blood Count 7.4 K/mm3 (4.5-10.0)
[2024-07-31 12:41] LABS: Immunoglobulin A 61 mg/dL (70-400); Immunoglobulin G 511 mg/dL (700-1600); Immunoglobulin M 47 mg/dL (40-230)
== END 2024-07-31 10:51 | disposition home or self-care (01) ==
LOC: ANHLAB 10:52
PROVIDERS: Visit Provider Internal Medicine Hematology & Oncology
DX: D80.9 Immunodeficiency with predominantly antibody defects, unspecified (principal)
CPT/HCPCS: 36415; 82784; 85025

== ENCOUNTER 2024-12-02 09:17 | Outpatient (CLI) | payer MEDICARE, SELFPAY ==
--- NOTE | ~2024-12-02 | DEXA_ITS ---
Bone Density Report Name: TORI AGUAYO Age: 74 Sex: Female Ethnicity: White Date of : 1950 Indication: osteopenia; parental hip fracture; height loss; prior fracture; Referring Provider: [place], BLAKE Study: Bone densitometry was performed. Exam Date: December 02, 2024 Accession number: [id number] Bone Density: Region BMD T-score Z-score Classification AP Spine(L1-L4) 0.876 -1.6 0.8 Osteopenia Femoral Neck (Right) 0.751 -0.9 1.2 Normal Total Hip (Right) 0.907 -0.3 1.5 Normal World Health Organization criteria for BMD impression classify patients as: Normal (T-score at or above -1.0), Osteopenia (T-score between -1.0 and -2.5), or Osteoporosis (T-score at or below -2.5). 10-year Fracture Risk(1): Major Osteoporotic Fracture 22% Hip Fracture 8.5% Reported Risk Factors: [place] (), Neck BMD=0.751, BMI=25.1, previous fracture, parental fracture (1) FRAX(R) Version 3.08. Fracture probability calculated for an untreated patient. Fracture probability may be lower if the patient has received treatment. Previous Exams: Region Exam Age BMD T-score BMD Change BMD Change Date g/cm2 vs Baseline vs Previous AP Spine (L1-L4) 12/02/2024 74 0.876 -1.6 -0.068 (-7.2%) -0.021 (-2.4%) 05/20/2022 71 0.897 -1.4 -0.047 (-4.9%) -0.043 (-4.5%) 12/28/2018 68 0.940 -1.0 -0.004 (-0.4%) -0.012 (-1.2%) 01/18/2016 65 0.952 -0.9 0.008 (0.8%)# 0.008 (0.8%)# 09/24/2012 61 0.944 -0.9 Total Hip(Right) 12/02/2024 74 0.907 -0.3 -0.051 (-5.3%) 0.007 (0.7%) 05/20/2022 71 0.900 -0.3 -0.058 (-6.0%) -0.027 (-2.9%) 12/28/2018 68 0.927 -0.1 -0.031 (-3.2%) -0.008 (-0.8%) 01/18/2016 65 0.935 -0.1 -0.023 (-2.4%) -0.023 (-2.4%) 09/24/2012 61 0.958 0.1 *Denotes significance at 95% confidence level, LSC for AP Spine = 0.022 g/cm2, LSC for Total Hip = 0.027 g/cm2 # Denotes dissimilar scan types or analysis methods Clinical Information Provided by Patient: Has had a low trauma fracture Parent has had a hip fracture Has used the following medications: Fosamax (i.e. alendronate), HRT (i.e. estrogen/hormone therapy), Vitamin D, Calcium Patient maximum height was 67.0 Menopause Age: 37 No regular weight bearing exercise Does not regularly consume dairy products Drinks caffeinated beverages Onset of menses at age 14 Number of children 0 Impression: The patient has low bone mass, based on the Total Spine T-score. The patient has an estimated ten-year risk of hip fracture of 8.5% and an estimated ten-year risk of major fracture of 22%, based on the WHO FRAX algorithm. The patient has risk factors, including: parental hip fracture, previous fracture. No significant bone loss was observed. Discussion: BONE DENSITY IS LOW AT ONE OR MORE SKELETAL SITES. THE PATIENT'S BMD AND CLINICAL RISK FACTORS CONTRIBUTE TO THIS PATIENT'S HIGH RISK OF FRACTURE. This patient's lowest T-score is low at one or more skeletal sites. It meets the World Health Organization's (WHO) criteria for ?low bone mass? (T-score between -1.0 and -2.5). The patient's 10-year risk of hip fracture and 10 year risk of a major osteoporotic fracture as calculated by FRAX exceeds the threshold where pharmacological therapy is recommended by the National Osteoporosis Foundation (NOF). However, all treatment decisions require clinical judgment and consideration of individual patient factors, including patient preferences, comorbidities, previous drug use, risk factors not captured in the FRAX model (e.g., frailty, falls, vitamin D deficiency, increased bone turnover, interval significant decline in bone density) and possible under or overestimation of fracture risk by FRAX. The patient should follow a healthful lifestyle (good nutrition with adequate calcium and vitamin D, and appropriate weight-bearing exercise). Follow-Up: Consider a repeat BMD and Vertebral Fracture Assessment (VFA) exam in 2 years or sooner if medically necessary, to reassess this patient's status. Reported by: KYLE on 12/02/2024 9:56:00 AM. Reviewed, dictated and finalized at location A.
--- OUTSIDE RECORDS SUMMARY | 2024-12-02 09:48 | XMS_ITS | Clinical Summary ---
Author Organization [facility] Address [address] [place] [address] Care Team Providers Care Home Care Coordinator Name Role Phone Unavailable Primary Care Provider Unavailabl e Source Comments [facility],non-owned Affiliates and Associated Physician Practices is amultiple site organization consisting of ambulatory clinics and hospital sitesin [place], [place], [place] and [place]. This disclosure is being madepursuant to the Care Everywhere program and may not contain all information available regarding this patient. Last updated 17.[facility] Social History Tobacco Use Types Packs/Day Years [...] 11/14/1999 ZOSTER VACCINE (1 of 2) 11/14/1999 DEPRESSION SCREENING 03/06/2024 MEDICARE AWV CALENDAR YEAR 2024 COVID-19 VACCINE (1 - 2023-2 5 season) 2024 INFLUENZA VACCINE (#1) 2024 Respiratory Syncytial Virus (RSV) Vaccine Pt: [...] on patient's age to complete this topic Insurance [employer] MANAGED MEDICARE ADV
--- OUTSIDE RECORDS SUMMARY | 2024-12-02 09:48 | XMS_ITS | Clinical Summary ---
Author Organization [facility] Address [address] [place] [address] Phone Care Team Providers Care Punch Finisher Name Role Phone Rob Ferreira Primary Care Provider Allergies No known active allergies Medications valACYclovir (VALTREX) 500 mg tabletIndications: Primary HSV infection of mouth Take 500 mg by mouth every 12 hours as needed. 03/29/19 16 Active EPINEPHrine (EPIPEN) 0.3 mg/0.3 mL Auto-InjectorIndic ations:Bee sting allergy Inject 0.3 mL (0.3 mg) by intramuscular injection 1 time daily as needed for Anaphylaxis. 1 Each 02/17/20 21 Active fluticasone propionate (FLONASE) 50 mcg/spray [place], Suspension nasal inhalerIndications :Seasonal allergic rhinitis due to pollen Administer 2 Sprays in each nostril daily. 16 Gram 02/17/20 21 Active latanoprost (XALATAN) 0.005 % solution INSTILL 1 DROP INTO EACH EYE AT BEDTIME 09/01/19 23 Active brimonidine (ALPHAGAN) 0.2 % solution instill [...] DAY 100 Tablet 3 06/18/19 25 Active cyclobenzaprine (FLEXERIL) 5 mg TabletIndications: Muscle spasm Take 1 Tablet (5 mg) by mouth 3 times daily as needed for Spasm. 75 Tablet 11/21/19 25 Active Active Problems Patient Care Coordination No te Formatting of this note migh t be different from the original. 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 [address] [place] [address] Rob Ferreira, Pure hypercholesterolemia (Primary Dx); Gastroesophageal reflux disease without esophagitis; Prediabetes; Major depressive disorder with single episode, in full remission; BMI 24.0-24.9, adult; Menopause; Muscle spasm; Osteopenia of multiple sites; Medicare annual wellness visit, subsequent; Common variable immunodeficiency, unspecified (CMS/HCC); Selective deficiency of IgG (CMS/HCC) 11/19/2024 External Device Data STL ABSTRACTION Provider, Abstract 11/12/2024 External Device Data STL ABSTRACTION Provider, Abstract 09/18/2024 External Device Data STL ABSTRACTION Provider, Abstract 09/18/2024 External Device Data STL ABSTRACTION Provider, Abstract [...] Never Smokeless Tobacco: Never Tobacco Cessation:Counseling Given: No Alcohol Use Standard Drinks/Week Comments Yes 0 [...] AM CDT Legal Sex Female 5:42 AM ANIMAL CARE ASSISTANT Gender Identity Female 11/24/2023 5:07 AM CDT Sexual Orientation Not on file Occupation Industry Job Start Date Job End Date Not on file Not on file Not on file Not on file Last Filed Vital Signs Vital Sign Reading Time Taken Comments Blood Pressure 112/74 11/20/2024 10:24 AM CDT Pulse 71 11/20/2024 10:24 AM CDT Temperature 36.4 C (97.6 F) 11/20/2024 10:24 AM CDT Respiratory Rate 16 11/20/2024 10:24 AM CDT Oxygen Saturation 96% 11/20/2024 10:24 AM CDT Inhaled Oxygen Concentration - - Weight 69.4 kg (153 lb) 11/20/2024 10:24 AM CDT Height 167.6 cm (5' 6) 11/20/2024 10:24 AM CDT Body Mass Index 24.69 11/20/2024 10:24 AM CDT Plan of Treatment Upcoming Encounters Date Type Department Care Team (Late st Contact Info) Description 12/03/2024 11:30 AM CDT Appointment [facility] [address] [place] [address] Angie Rodriguez, SHARON [address] [place] [address] 12/03/2024 12:30 PM CDT Office Visit [facility] [address] [place] [address] Angie Rodriguez, SHARON [address] [place] [address] 02/06/2025 11:30 AM ANIMAL CARE ASSISTANT Office Visit [facility] - [place] [address] [facility] [address] [place] [address] Danielito Church MD [address] [facility] [address] [place] [address] 11/18/2025 11:00 AM CDT Office Visit [facility] - [facility] [address] [facility] [address] [place] [address] Rob Ferreira, [address] [place] [address] Health Maintenance Due Date Last Done Comments FIT/ DNA Q 3 YEARS (AUTO ORDER) 11/14/1967 FIT/FOBT Q 1 YEAR (AUTO ORDER) 11/14/1967 FLEX SIG/CT COLONOGRAPHY Q 5 YEARS (AUTO ORDER) 11/14/1967 FIT-DNA Q 3 years 1994 FIT/FOBT Q 1 year 1994 Flex Sig/CT Colonography Q 5 years 1994 OSTEOPOROSIS SCREENING 08/10/2022 08/10/2017, 2012 INFLUENZA VACCINE (#1) 2024 , 12/05/2019, 12/05/2019, Additional history exists COVID-19 Vaccine (5 - 2024-2 6 season) 2024 08/10/2021, 01/20/2021, 05/25/2020, Additional history exists RSV VACCINE (60+ or ) (1 - 1-dose 75+ series) 2024 DTAP/TDAP/TD VACCINES (3 - Tdap) 11/19/2024 11/20/19 15, 11/11/2014 COLORECTAL CANCER SCREENING (AUTO ORDER) 03/15/2028 03/15/2018, 08/29/2013 COLORECTAL SCREENING 03/15/2028 03/15/2018, 08/29/2013, 03/06/2013 Colorectal Cancer Screening (AUTO ORDER) 03/15/2028 Colorectal Cancer Screening 03/15/2028 PNEUMOCOCCAL VACCINE 50+ YEARS Completed 0 04/26/2017, 04/26/2017, 12/23/2015, Additional history exists ZOSTER VACCINE Completed 08/23/2019, 02/03, 12/18/2014 [place] Preventative Visit/Annual Wellness Visit Completed 11/20/2024, 11/23/2023, 11/18/2022, Additional history exists Procedures Procedure Name Priority Date/Time Associated Diagnosis Comments HEMOGLOBIN A1C Routine 11/20/2024 11:11 AM CDT Prediabetes LIPID PANEL Routine 11/20/2024 11:11 AM CDT Pure hypercholesterolemia ENDOSCOPY, COLON, SCREENING Routine 03/15/2018 HM DEXA SCAN Routine 08/10/2017 from Last 3 Months or Most Recently Relevant to Health Maintenance Results * (ABNORMAL) HEMOGLOBIN A1C (11/20/2024 11:11 AM CDT) HEMOGLOBIN A1C 6.0(H) <5.7 % of total Hgb [facility] Comment: For someone without known diabetes, a hemoglobin A1c value between 5.7% and 6.4% is consistent with prediabetes and should be confirmed with a follow-up test. For someone with known diabetes, a value <7% indicates that their diabetes is well controlled. A1c targets should be individualized based on duration of diabetes, age, comorbid conditions, and other considerations. This assay result is consistent with an increased risk of diabetes. Currently, no consensus exists regarding use of hemoglobin A1c for diagnosis of diabetes for children. ESTIMATED AVERAGE GLUCOSE (MG/DL) 126 mg/dL [facility] ESTIMATED AVERAGE GLUCOSE (MMOL/L) 7.0 mmol/L [facility] Comment: FASTING:UNKNOWN FASTING: UNKNOWN Test Performed at: [facility] [address] [place] [address] Angelica Gudino Blood 11/20/2024 11:1 1 AM CDT 11/20/2024 11:11 AM CDT us Rob Ferreira DO CHEMISTRY ORDERABLES F inal Result [facility] [phone] [place] [address] [address] [address] * (ABNORMAL) LIPID PANEL (11/20/2024 11:11 AM CDT) CHOLESTEROL 202(H) <200 mg/dL [facility] HDL 89 > OR = 50 mg/dL [facility] TRIGLYCERIDE 82 <150 mg/dL [facility] IMANINAriadne rian Valdes LDL CALCULATED 96 mg/dL (calc) [facility] IMAN[facility]ne rian Valdes Comment: Reference range: <100 Desirable range <100 mg/dL for primary prevention; <70 mg/dL for patients with CHD or diabetic patients with > or = 2 CHD risk factors. LDL-C is now calculated using the Shena calculation, which is a validated novel method providing better accuracy than the Friedewald equation in the estimation of LDL-C. Quinn GODINEZ et al. DOMINIQUE. 2013;310(19): 4131-6947 (http://education.[employer]/faq/IKE632) CHOL/HDL RATIO 2.3 <5.0 (calc) [facility] AndrewAriadne rian Valdes NON-HDL CHOLESTEROL 113 <130 mg/dL (calc) [facility] Comment: For patients with diabetes plus 1 major ASCVD risk factor, treating to a non-HDL-C goal of <100 mg/dL (LDL-C of <70 mg/dL) is considered a therapeutic option. FASTING:UNKNOWN FASTING: UNKNOWN Test Performed at: [place] [address] [address] [address] Angelica Cannon Blood 11/20/2024 11:1 1 AM CDT 11/20/2024 11:11 AM CDT us Rob Ferreira DO CHEMISTRY ORDERABLES F inal Result [facility] [phone] [place] [address] [address] [place] [address] * ENDOSCOPY, COLON, SCREENING (03/15/2018) us Gamal Ibarra MD GI PROCEDURE ORDERABLES Edited R esult - Final [facility] CLIA# [id number] [address] [place] [address] * DEXA SCAN (08/10/2017) us Abstract Provider HEALTH MAINTENANCE Edited Resu lt - Final [facility] PIMENTEL# [id number] [place] [address] from Last 3 Months or Most Recently Relevant to Health Maintenance Insurance Member Subscriber Plan / Payer (Ef fective 2020-Present) Name:Loretta Trujillo Relation to Subscriber:Self Name:Loretta Trujillo Payer ID:Not on file Group ID:[id number] Type:RX Medicare Part D Address: [address] [facility] [address] Care Teams Punch Finisher Relationship Specialty [place] [address] [address] [facility] [address] [place] [address] PCP - General Internal Medicine 04/02/15
--- OUTSIDE RECORDS SUMMARY | 2024-12-02 09:48 | XMS_ITS | Encounter Summary ---
Author Organization [facility] Address [address] [place] [address] Care Team Providers Care Emergency Generator Mechanic Name Role Phone Unavailable Primary Care Provider Unavailabl e Encounter Details Date Type Department Care Team (Late st Contact Info) Description 05/13/2024 Lab Requisition [facility] - DermPath Lab [address] [facility], [place] [address] Ashly Sage MD [address] [facility] 3 [place] [address] Social History Tobacco Use Types Packs/Day Years [...] AM CDT) Case Report Dermatopathology Report Case: [id number] Authorizing Provider: Ashly Sage MD Collected: 05/13/2024 11:16 AM Ordering Location: [facility] - Received: 05/15/2024 09:01 AM DermPath Lab [...] characteristic determined by the Dermatopathology Laboratory at [facility], directed by Dr. Carmella Lauren. These tests need not be, and therefore are not, approved by the [place] Food and Drug Administration. The tests are used for clinical purposes. Billing Codes Specimen Charges Stain Charges 30697 1 12596 81934 1 1 5 1:25 PM CDT DERMATOPATHOLOGY LABORATORY Embedded Images 1:25 PM CDT DERMATOPATHOLOGY LABORATORY Pathology/Cytolo gy TISSUE SPECIMEN FROM SKIN / Unknown 05/13/2024 11:16 AM CDT 05/15/2024 9:01 AM CDT us Ashly Sage MD LAB - PATHOLOGY/CYTOLOGY OR DERABLES Final Result DERMATOPATHOLOGY LABORATORY [facility] - Department of Dermatology [address], [address] Floor [address] [phone] documented in this encounter Visit Diagnoses Not on filedocumented in this encounter
--- OUTSIDE RECORDS SUMMARY | 2024-12-02 09:48 | XMS_ITS | Encounter Summary ---
Author Organization [facility] Address [address] [place] [address] Care Team Providers Care Custom Clothier Name Role Phone Unavailable Primary Care Provider Unavailabl e Encounter Details Date Type Department Care Team (Late st Contact Info) Description 07/10/2019 Lab Requisition [facility] DermPath Lab [address] [facility], [place] [address] Ashly Sage MD [address] [facility] 3 [place] [address] Social History Tobacco Use Types Packs/Day Years [...] AM CDT) Case Report Dermatopathology Report Case: [id number] Authorizing Provider: Ashly Sage MD Collected: 07/09/2019 12:00 AM Ordering Location: [facility] DermPath Lab Received: 07/10/2019 07:01 AM Pathologist: [...] The specimen consists of a shave measuring 62d7p8pe. Jar 0. 0 2:28 PM CDT DERMATOPATHOLOGY [...] characteristic determined by the Dermatopathology Laboratory at [facility], directed by Dr. Carmella Lauren. These tests need not be, and therefore are not, approved by the [place] Food and Drug Administration. The tests are used for clinical purposes. Billing Codes Specimen Charges Stain Charges 92910 1 0 2:28 PM CDT DERMATOPATHOLOGY LABORATORY Embedded Images 0 2:28 PM CDT DERMATOPATHOLOGY LABORATORY Pathology/Cytolog y TISSUE SPECIMEN FROM SKIN / Unknown 07/09/2019 07/10/2019 7:01 AM CDT Ashly Sage MD LAB - PATHOLOGY/CYTOLOGY OR DERABLES Final Result DERMATOPATHOLOGY LABORATORY [facility] - Department of Dermatology [address] [place] [address], 5th [place] [address], [facility] [phone] documented in this encounter Visit Diagnoses Not on filedocumented in this encounter
== END 2024-12-02 09:18 | disposition home or self-care (01) ==
PROVIDERS: Visit Provider Nurse Practitioner
DX: Z78.0 Asymptomatic menopausal state (principal); M85.88 Other specified disorders of bone density and structure, other site
CPT/HCPCS: 77080

== ENCOUNTER 2025-01-27 09:16 | Outpatient (CLI) | payer MEDICARE, SELFPAY ==
[2025-01-27 09:54] LABS: Hematocrit 36.8 % (37.0-47.0); Hemoglobin 11.7 g/dL (12.0-15.0); Immature Granulocyte Percent A 0.2 % (0-0.5); Lymphocytes Absolute Auto 1.36 K/mm3 (0.9-3.2); Mean Corpuscular HGB Conc 31.8 g/dl (32-36); Mean Corpuscular Hemoglobin 28.8 pg (26-34); Mean Corpuscular Volume 90.6 fl (80-100); Nucleated Red Blood Cells Absolute Auto 0.000 K/mm3 (0.0-0.012); Nucleated Red Blood Cells Perc 0.0 % (0.0-0.2); Platelet Count Result 249 k/mm3 (150-375); Red Blood Count 4.06 M/mm3 (4.2-5.4); White Blood Count 4.8 K/mm3 (4.5-10.0)
--- OUTSIDE RECORDS SUMMARY | 2025-01-27 10:14 | XMS_ITS | Encounter Summary ---
Author Organization [facility] Address [address] [place] [address] Care Team Providers Care Digital Press Operator Name Role Phone Unavailable Primary Care Provider Unavailabl e Encounter Details Date Type Department Care Team (Late st Contact Info) Description 05/13/2024 Lab Requisition [facility] - DermPath Lab [address] [facility], [place] [address] Ashly Sage MD [address] [facility] 3 [place] [address] Social History Tobacco Use Types Packs/Day Years [...] AM CDT) Case Report Dermatopathology Report Case: [id number] Authorizing Provider: Ashly Sage MD Collected: 05/13/2024 11:16 AM Ordering Location: [facility] - Received: 05/15/2024 09:01 AM DermPath [...] characteristic determined by the Dermatopathology Laboratory at [facility], directed by Dr. Carmella Lauren. These tests need not be, and therefore are not, approved by the [place] Food and Drug Administration. The tests are used for clinical purposes. Billing Codes Specimen Charges Stain Charges 80766 1 34242 82786 1 1 5 1:25 PM CDT DERMATOPATHOLOGY LABORATORY Embedded Images 1:25 PM CDT DERMATOPATHOLOGY LABORATORY Pathology/Cytolo gy TISSUE SPECIMEN FROM SKIN / Unknown 05/13/2024 11:16 AM CDT 05/15/2024 9:01 AM CDT us Ashly Sage MD LAB - PATHOLOGY/CYTOLOGY OR DERABLES Final Result DERMATOPATHOLOGY LABORATORY [facility] - Department of Dermatology [address], [address] Floor [address] [phone] documented in this encounter Visit Diagnoses Not on filedocumented in this encounter
--- OUTSIDE RECORDS SUMMARY | 2025-01-27 10:14 | XMS_ITS | Encounter Summary ---
Author Organization [facility] Address [address] [place] [address] Care Team Providers Care Scale Technician Name Role Phone Unavailable Primary Care Provider Unavailabl e Encounter Details Date Type Department Care Team (Late st Contact Info) Description 07/10/2019 Lab Requisition [facility] DermPath Lab [address] [facility], [place] [address] Ashly Sage MD [address] [facility] [address] [place] [address] Social History Tobacco Use Types Packs/Day Years [...] AM CDT) Case Report Dermatopathology Report Case: [id number] Authorizing Provider: Ashly Sage MD Collected: 07/09/2019 12:00 AM Ordering Location: [facility] DermPath Lab Received: 07/10/2019 07:01 AM Pathologist: [...] The specimen consists of a shave measuring 05v3x4mn. Jar 0. 0 2:28 PM CDT DERMATOPATHOLOGY [...] characteristic determined by the Dermatopathology Laboratory at [facility], directed by Dr. Carmella Lauren. These tests need not be, and therefore are not, approved by the [place] Food and Drug Administration. The tests are used for clinical purposes. Billing Codes Specimen Charges Stain Charges 23667 1 0 2:28 PM CDT DERMATOPATHOLOGY LABORATORY Embedded Images 0 2:28 PM CDT DERMATOPATHOLOGY LABORATORY Pathology/Cytolog y TISSUE SPECIMEN FROM SKIN / Unknown 07/09/2019 07/10/2019 7:01 AM CDT Ashly Sage MD LAB - PATHOLOGY/CYTOLOGY OR DERABLES Final Result DERMATOPATHOLOGY LABORATORY [facility] - Department of Dermatology [address] [place] [address], [address]th [place] [address], [facility] [phone] documented in this encounter Visit Diagnoses Not on filedocumented in this encounter
--- OUTSIDE RECORDS SUMMARY | 2025-01-27 10:14 | XMS_ITS | Clinical Summary ---
Author Organization [facility] Address [address] [facility] [place] [address] Care Team Providers Care Supervisor Fiberglass Boat Assembly Name Role Phone Unavailable Primary Care Provider Unavailabl e Source Comments [facility] [employer],non-owned Affiliates and Associated Physician Practices is amultiple site organization consisting of ambulatory clinics and hospital sitesin [place], [place], [place] and [place]. This disclosure is being madepursuant to the Care Everywhere program and may not contain all information available regarding this patient. Last updated [facility] [employer] Social History Tobacco Use Types Packs/Day Years [...] CALENDAR YEAR 2024 COVID-19 VACCINE (1 - 2024-2 6 season) 2024 INFLUENZA VACCINE (#1) 2024 Respiratory [...]
--- OUTSIDE RECORDS SUMMARY | 2025-01-27 10:14 | XMS_ITS | Clinical Summary ---
[facility] Organization [facility] Address [address] [place] [address] Phone Care Team Providers Care Model Builder Display Name Role Phone Jhon Rob Quinn DO Primary Care Provider Allergies No known active [...] 21 Active fluticasone propionate (FLONASE) 50 mcg/spray [place], Suspension nasal inhalerIndications :Seasonal allergic rhinitis due [...] for Spasm. 75 Tablet 11/21/19 25 Active vitamin B complex Tablet Sustained Release Take 1 Tablet by mouth daily. Active Active Problems Patient Care Coordination No te Formatting of this note migh t be different from the original. Primary Care: Rob Ferreira [place]: [place] [address] [facility] [address] [place] [address] Other: Odalys Cruz COUNTRY [employer]ER Problem Noted Date Diagnosed Date Common variable [...] Encounters Date Type Department Care Team Description 01/15/2025 Abstract [facility] Oncology and Hematology - [place] [address] [place] [address] Danielito Church MD 12/25/2024 External Device Data STL ABSTRACTION Provider, Abstract 12/24/2024 External Device Data STL ABSTRACTION Provider, Abstract 12/03/2024 12:30 PM CDT Office Visit [facility] Breast Surgery [address] [facility] [address] [place] [phone] Angie Rodriguez, PROBATE JUDGE Fibrocystic breast disease (FCBD), unspecified laterality (Primary Dx); Breast cancer screening by mammogram; H/O right breast biopsy 12/03/2024 11:21 AM CDT - 12/03/2024 11:59 PM CDT Hospital Encounter [facility] [address] [place] [address] Angie Rodriguez, PROBATE JUDGE Discharge Disposition: Home or Self Care 11/26/2024 External Device Data STL ABSTRACTION Provider, Abstract 11/20/2024 10:40 AM CDT Office Visit [facility] Internal Medicine - [facility] [address] [id number] [facility] [address] [place] [address] Rob Ferreira, Pure hypercholesterolemia (Primary [...] Family History Medical History Relation Name Comments Blood Disorder Father Tod Trujillo Polycythemi a Cancer Maternal Aunt 1 stomach Lung Cancer Maternal Aunt 2 Yumiko Cancer Maternal Grandmother Hailey Mayberry unsur e Cancer - Other Maternal Grandmother Hailey Mayberry Walter ated with radium for some kind of issues with female organs Melanoma Maternal Grandmother Hailey Mayberry Skin cancer and some form of cancer in reproductive area? Cancer Mother Mae Padilla Skin cancer Cancer - Other Mother Mae Padilla Skin cancer Depression Mother Mae Padilla Melanoma Mother Mae Padilla Skin cancer Other Mother Mea Padilla Dementia Cancer Paternal Aunt unsure Other Paternal Uncle Emigdio diabetes Diabetes Sister Ricardo Hypertension Sister Ricardo Relation Name Status Comments Father Tod Trujillo Alive Maternal Aunt 1 Maternal Aunt 2 Yumiko Maternal Grandmother Hailey Mayberry Mother Mae Padilla Alive Paternal Aunt Paternal Uncle Emigdio Sister Ricardo Alive Social History Tobacco Use Types Packs/Day [...] of Transportation (Non-Medical) Not on file 11/18/2021 Feeling Safe Answer Date Recorded Do you worry about feeling s afe and happy with the people in your life? No 12/03/2024 Comments No Sex and Gender Information Value Date Recorded Sex Assigned at Female 11/24/2023 5:07 AM CDT Legal Sex Female 5:42 AM PROGRAM SPECIALIST Gender Identity Female 11/24/2023 5:07 AM CDT Sexual Orientation Not on file Occupation Industry Job Start Date Job End Date Not on file Not on file Not on file Not on file Last Filed Vital Signs Vital Sign Reading Time Taken Comments Blood Pressure 116/64 12/03/2024 12:20 PM CDT Pulse 71 11/20/2024 10:24 AM CDT Temperature 36.4 C (97.6 F) 11/20/2024 10:24 AM CDT Respiratory Rate 16 11/20/2024 10:24 AM CDT Oxygen Saturation 96% 11/20/2024 10:24 AM CDT Inhaled Oxygen Concentration - - Weight 70.3 kg (155 lb) 12/03/2024 12:20 PM CDT Height 167.6 cm (5' 6) 12/03/2024 12:20 PM CDT Body Mass Index 25.02 12/03/2024 12:20 PM CDT Plan of Treatment Upcoming Encounters Date Type Department Care Team (Late st Contact Info) Description 02/06/2025 11:30 AM PROGRAM SPECIALIST Office Visit [facility] Oncology and Hematology - [place] [address] [place] [address] [facility] [address] [place] [address] Danielito Church MD [address] [facility] [address] [place] [address] 11/18/2025 11:00 AM CDT Office Visit [facility] Internal Medicine - [facility] [address] [facility] [address] [place] [address] Rob Ferreira, [address] [place] [address] 12/09/2025 11:[address] [facility] [address] [place] [address] Angie Rodriguez, SHARON [address] [place] [address] 12/09/2025 12:30 PM CDT Office Visit [facility] Breast Surgery [address] [address] [facility] [address] [place] [address] Angie Rodriguez, SHARON [address] [place] [address] Health Maintenance Due Date Last [...] VACCINE Completed 08/23/2019, 02/03, 12/18/2014 [place]) Preventative Visit/Annual Wellness Visit Completed 11/20/2024, 11/23/2023, 11/18/2022, Additional history exists Procedures Procedure Name Priority Date/Time Associated Diagnosis Comments MAMMO 3D ANNETTE SCREEN BILAT W OR WO CAD Routine 12/03/2024 11:33 AM CDT Visit for screening mammogram HEMOGLOBIN A1C Routine 11/20/2024 11:11 AM CDT Prediabetes LIPID PANEL Routine 11/20/2024 11:11 AM CDT Pure hypercholesterolemia ENDOSCOPY, COLON, SCREENING Routine 03/15/2018 HM DEXA SCAN Routine 08/10/2017 from Last 3 Months or Most Recently Relevant to Health Maintenance Results * MAMMO 3D ANNETTE SCREEN BILAT W OR WO CAD (12/03/2024 11:33 AM CDT) Anatomical Region Laterality Modality Breast Bilateral Mammography 12/03/2024 11:3 3 AM CDT Impressions 12/03/2024 11:43 AM CDT IMPRESSION: No mammographic evidence of malignancy is identified in either breast. Routine screening mammography is recommended in one year. OVERALL FINAL ASSESSMENT: BI-RADS CATEGORY 2: Benign findings. DICTATION LOCATION: Juliana Ramirez [facility] 12/03/2024 11:43 AM CDT EXAMINATION: MAMMO 3D ANNETTE SCREEN BILAT W OR WO CAD DATE: 12/03/2024 11:33 AM HISTORY: Routine screening mammography. COMPARISON: 12/01/2023, 11/29/2022, 11/24/2021, 11/24/2020. TECHNIQUE: Bilateral screening mammogram was performed. Low-dose full-field digital breast tomosynthesis examination was performed with 2D and 3D acquisitions. Examination is read in conjunction with computer aided detection. BREAST COMPOSITION: There are scattered areas of fibroglandular density. FINDINGS: Stable postoperative changes in the right breast. No new suspicious findings are identified in either breast on mammogram. Angie Rodriguez [facility] MAMMO ORDERABLES Final Re sult * (ABNORMAL) HEMOGLOBIN A1C (11/20/2024 11:11 AM CDT) HEMOGLOBIN A1C 6.0(H) <5.7 % of total Hgb [facility] Comment: For someone without known diabetes, [...] children. ESTIMATED AVERAGE GLUCOSE (MG/DL) 126 mg/dL [facility] ESTIMATED AVERAGE GLUCOSE (MMOL/L) 7.0 mmol/L [facility] Comment: FASTING:UNKNOWN FASTING: UNKNOWN Test Performed at: [facility] [address] [address] Angelica Gudino Blood 11/20/2024 11:1 1 AM CDT 11/20/2024 11:11 AM CDT Rob Ferreira CHEMISTRY ORDERABLES F inal Result [facility] [phone] [facility] [address] [address] * (ABNORMAL) LIPID PANEL (11/20/2024 11:11 AM CDT) [facility] CHOLESTEROL 202(H) <200 mg/dL [facility] HDL 89 > OR = 50 mg/dL [facility] TRIGLYCERIDE 82 <150 mg/dL [facility] LDL CALCULATED 96 mg/dL (calc) [facility] Comment: Reference range: <100 Desirable range <100 mg/dL for primary prevention; <70 mg/dL for patients with CHD or diabetic patients with > or = 2 CHD risk factors. LDL-C is now calculated using the Quinn-Jones calculation, which is a validated novel method providing better accuracy than the Friedewald equation in the estimation of LDL-C. Quinn GODINEZ et al. DOMINIQUE. 2013;310(19): 3164-1160 (http://education.Walldress.Abroad101/faq/RAG759) CHOL/HDL RATIO 2.3 <5.0 (calc) [facility] NON-HDL CHOLESTEROL 113 <130 mg/dL (calc) [facility] Comment: For patients with diabetes plus 1 major ASCVD risk factor, treating to a non-HDL-C goal of <100 mg/dL (LDL-C of <70 mg/dL) is considered a therapeutic option. FASTING:UNKNOWN FASTING: UNKNOWN Test Performed at: [place] [address] [place] [address] Angelica Gudino Blood 11/20/2024 11:1 1 AM CDT 11/20/2024 11:11 AM CDT Rob Ferreira DO CHEMISTRY ORDERABLES F inal Result [facility] [phone] [place] [address] [address] * ENDOSCOPY, COLON, SCREENING (03/15/2018) us Gamal Ibarra MD GI PROCEDURE ORDERABLES Edited R esult - Final [facility] CLIA# [id number] [facility] [address] [place], [place] [id number] * HM DEXA SCAN (08/10/2017) us Abstract Provider HEALTH MAINTENANCE Edited Resu lt - Final Performing Organization Address [facility]/ZIP Co de Phone Number [facility] CLIA# [id number] [place] [address] from Last 3 Months or Most Recently Relevant to Health Maintenance Insurance [facility] [id number] RX [employer] Member Subscriber Plan / Payer (Ef fective 2020-Present) Name:Loretta Trujillo Relation to Subscriber:Self Name:Loretta Trujillo Payer ID:Not on file Group ID:[id number] Type:RX Medicare Part D Address: [address] [place] [id number] Care Teams Model Builder Display Relationship Specialty [place] [address] [facility] [address] [place] [address] PCP - General Internal Medicine 04/02/15
[2025-01-27 11:24] LABS: Anion Gap 8 mmol/L (4-12); Blood Urea Nitrogen 18 mg/dL (7-17); Calcium 8.8 mg/dL (8.4-10.2); Carbon Dioxide 26 mmol/L (22-30); Chloride 106 mmol/L (98-107); Estimated Glomerular Filt Rate 51; Glucose 90 mg/dL (65-110); Potassium 4.5 mmol/L (3.4-5.0); Sodium 140 mmol/L (137-145)
[2025-01-27 11:31] LABS: Immunoglobulin A 48 mg/dL (70-400); Immunoglobulin G 536 mg/dL (700-1600); Immunoglobulin M 40 mg/dL (40-230)
== END 2025-01-27 09:17 | disposition home or self-care (01) ==
LOC: ANHLAB 09:16
PROVIDERS: Visit Provider Internal Medicine Hematology & Oncology
DX: D80.9 Immunodeficiency with predominantly antibody defects, unspecified (principal)
CPT/HCPCS: 36415; 80048; 82784; 85025